=== PATIENT | male | born 1930 | race Caucasian/White ===

== ENCOUNTER 2017-02-06 10:39 | Inpatient (IN) | payer MEDICARE, BC ==
--- NOTE | ~2017-02-06 | HP ---
Unit #: [id number] #: [id number] Patient: KRISTIN GARG [id number] [address] [address] [id number] I MR#: [id number] NAME: KRISTIN GARG ROOM: 323 Age: 86 Sex: M Admission Date: 02/06/2017 : 1930 Attending Physician: Charles Amaral M.D. Primary Care Physician: Edvin Hadley M.D. HISTORY AND PHYSICAL CHIEF COMPLAINT The patient presented to the office complaining of weakness with severe anemia. HISTORY OF PRESENT ILLNESS Mr. Kristin Garg is 83 years old with a history of small lymphocytic lymphoma, which is currently being observed. He came to the office today as a routine followup and on questioning admitted that he is feeling weak for the past week or so with some sense of imbalance. On questioning he had diarrhea with three loose stools last week, but did not report them to be of any different color. CBC done in the office showed a hemoglobin of 7.4, which was unexpectedly low and was recommended admission for evaluation of autoimmune hemolytic anemia or possibly GI bleeding. Following admission hemoglobin was 6.4 and he is scheduled to be transfused 2 units of packed cells. PAST MEDICAL HISTORY 1. Hyperlipidemia. 2. Degenerative arthritis. 3. Small lymphocytic lymphoma. 4. Prior history of pneumonia. PAST SURGICAL HISTORY 1. Appendectomy. 2. Cholecystectomy. SOCIAL HISTORY Never smoker. Does not drink any alcohol. He is single and lives by himself, but he has multiple daughters who assist in his care. FAMILY HISTORY Negative for blood disorders. REVIEW OF SYSTEMS Fourteen point review was taken. CONSTITUTIONAL: Fatigue, sense of imbalance, but no change in appetite and weight. EYES: Negative. EARS, NOSE, MOUTH AND THROAT: Negative. CARDIOVASCULAR: Negative. RESPIRATORY: Some shortness of breathing. Cough without expectoration. No hemoptysis. GASTROINTESTINAL: As discussed. GENITOURINARY: Negative. Unit #: [id number] #: [id number] Patient: KRISTIN GARG NEUROLOGIC: Negative. ALLERGIC: Negative. LYMPHATIC: Negative. SKIN: Negative. PSYCHIATRIC: Negative. ENDOCRINE: Negative. PHYSICAL EXAMINATION GENERAL: The patient is a pleasant, elderly man, awake, alert and oriented times three. VITALS: On admission, temperature 98.4, pulse rate 75, respiratory rate 18, blood pressure 120/54, weight 75.4 kg, BMI 24. HEENT: Awake, alert and oriented times three. On admission he is pale, but not icteric. Mucous membranes are moist. NECK: Without adenopathy, jugular venous distension or thyromegaly. CARDIOVASCULAR: First and second heart sounds are heard and regular. No gallops or rubs. LUNGS: Chest expansion is symmetric. Bilateral and equal air entry with normal breath sounds. ABDOMEN: Soft and nontender. Bowel sounds are active. No organomegaly. EXTREMITIES: 1-2+ pulses. No cyanosis or clubbing. NEUROLOGIC: He is awake, alert, and oriented times three without any focal findings. SKIN: Negative. LYMPHATIC: Negative. PSYCHIATRIC: Normal affect. DIAGNOSTIC STUDIES LABORATORY: CBC shows a white blood cell count of 12.8, hemoglobin 6.4, platelet count 132, MCV 105.3. ASSESSMENT/PLAN Mr. Kristin Garg is 86 years old with a history of degenerative arthritis, who is on baby aspirin 81 mg and a history of small lymphocytic lymphoma which is not being treated to this point. Severe normocytic and macrocytic anemia, possibility of (1) . Etiology of anemia is to be determined, with the differential including autoimmune hemolysis related to his (2) small lymphocytic lymphoma versus GI bleeding. Plans will be to admit him, get a direct zora, LDH, haptoglobin, chemistry, type and cross and transfuse him two units of packed cells. Based upon the workup, will plan to start him on IV steroids or consult GI for endoscopy and further evaluation. Plans were discussed in detail with Mr. Garg and his daughter in the office. Dictated by Nikko Villafana TD: 02/06/2017 15:44 JOB #: [id number] Unit #: [id number] #: [id number] Patient: KRISTIN GARG HISTORY AND PHYSICAL Page 1 of 1 X Charles Amaral MD X HISTORY AND PHYSICAL
--- NOTE | ~2017-02-06 | DS ---
Unit #: [id number] #: [id number] Patient: KRISTIN GARG [id number] [address] [place], [place] [address] [id number] I MR#: [id number] NAME: KRISTIN GARG ROOM: 323 Age: 86 Sex: M Admission Date: 02/07/2017 : 1930 Discharge Date: 02/08/2017 Attending Physician: Charles Amaral M.D. Primary Care Physician: Edvin Hadley M.D. DISCHARGE SUMMARY PRINCIPAL DIAGNOSES 1. Severe symptomatic anemia. 2. Possible gastrointestinal bleed. 3. Small lymphocytic lymphoma. 4. Gout. 5. Colon polyps. 6. Gastroduodenitis. DISCHARGE MEDICATIONS Mr. Kristin Garg will resume his home medications with the exception of aspirin 81 mg. He will watch his stools carefully for evidence of blood. He will follow up in the office weekly on for four weeks. HOSPITAL COURSE/COMPLICATIONS Please see admission history and physical for details of admission. In brief, Mr. Garg was seen in the office with a hemoglobin of 7.4. He was symptomatic with dizziness and weakness. Recheck of CBC done in the hospital was 6.4. Hemolysis workup given is untreated CLL, small lymphocytic lymphoma was done. Normal haptoglobin, normal direct Bonnie test and normal LDH. A GI bleed was suspected. He was transfused two units of packed cells and underwent evaluation by (1) of [facility] as well as Dr. Gerson Gonzales of GI. Upper endoscopy revealed gastroduodenitis but no clear evidence of source of blood loss. He, thereafter, underwent colonoscopy on 01/31/17 with the finding of a colonic polyp which was snared and, again, apart from diverticula and a few tics, no clear source of blood loss. Hemoglobin post transfusion of two units of packed cells was 9.7, stable. He was feeling better. He will be discharged home to follow up as an outpatient. Dictated by... Nikko Villafana/pastor TD: 02/09/2017 10:45 JOB #: [id number] Unit #: [id number] #: [id number] Patient: DAREK GARGYONJustice DISCHARGE SUMMARY Page 1 of 1 X Charles Amaral MD X DISCHARGE SUMMARY
--- NOTE | ~2017-02-06 | CO ---
Unit #: [id number] #: [id number] Patient: KRISTIN PARNELL [id number] [address] [address] [id number] I MR#: [id number] NAME: KRISTIN PARNELL ROOM: 323 Age: 86 Sex: M Admission Date: 02/06/2017 : 1930 Attending Physician: Charles Amaral M.D. Primary Care Physician: Mason Hadley Consultation Date: 02/06/2017 CONSULTATION REPORT REASON FOR CONSULTATION Medical management. HISTORY OF PRESENT ILLNESS The patient is an 86-year-old male with past medical history of CLL, BPH, hyperlipidemia, gout, who was admitted by Dr. Amaral for symptomatic anemia. The patient states that he has had a four- to five-day history of increasing generalized weakness. He states that he has felt somewhat lightheaded and like he might pass out. He denies any chest pain. No difficulty breathing. He denies any abdominal pain. No diarrhea or constipation. No blood in the stool or black tarry stool. The patient states that he was seeing Dr. Amaral for routine checkup. He sees him about every three months regarding CLL. He was noted to have a hemoglobin of 6.4. He was sent to [facility] for admission. PAST MEDICAL HISTORY 1. Admission to [facility] 05/04 through 05/08/2014 for pneumonia. 2. BPH. 3. Gout. 4. CLL followed by Dr. Amaral. PAST SURGICAL HISTORY 1. Appendectomy. 2. Cholecystectomy. ALLERGIES Sulfa. HOME MEDICATIONS 1. Aspirin 81 mg daily. 2. Allopurinol 100 mg daily. 3. Lovastatin 20 mg daily. 4. Alfuzosin 10 mg daily. SOCIAL HISTORY The patient lives with his . There is no tobacco or alcohol use. He walks without assistance. FAMILY HISTORY Unit #: [id number] #: [id number] Patient: KRISTIN PARNELL Notable for both parents being healthy. There is no malignancy in the family as far as he knows. REVIEW OF SYSTEMS A complete review of systems is negative except as indicated in the HPI. PHYSICAL EXAMINATION VITAL SIGNS: Temperature 98.4, pulse 75, respirations 18, blood pressure 122/54. GENERAL: The patient is a very pleasant male who is awake and alert in no acute distress. HEENT: Head is atraumatic. Mucous membranes are moist. NECK: Supple. Trachea is midline. LUNGS: Clear to auscultation bilaterally with no increased work of breathing. HEART: Regular rate and rhythm. ABDOMEN: Soft, nontender. Bowel sounds present in all four quadrants. EXTREMITIES: Nontender with no pedal edema. NEUROLOGIC: Patient is awake and alert. He follows commands. PSYCHIATRIC: Mood and affect are normal. Patient is cooperative. SKIN OF EXAMINED AREAS: Warm and dry. DIAGNOSTIC STUDIES LABORATORY: Complete blood count notable for a white blood cell count of 12.8, hemoglobin 6.4, hematocrit 19.6, platelets 132. INR is 1. Comprehensive metabolic panel notable for BUN 21, creatinine 1.6. LDH is 193. Total protein 5.7. ASSESSMENT The patient is an 86-year-old male with: 1. Symptomatic anemia. The patient's hemoglobin was 14 on 09/02/2016, it is 6.[address] Amaral has ordered 2 units of packed red blood cells to be transfused. He has also ordered 40 mg of Protonix and consulted Dr. Gonzales. There is concern for possible autoimmune hemolytic anemia as well. 2. History of CLL. 3. Acute kidney injury although this looks like it may be chronic kidney disease. The patient's creatinine appears to be near baseline at 1.6. It has been as high as 2.2 on 09/02/2016. 4. Hyperlipidemia. 5. History of gout. PLAN 1. Regarding symptomatic anemia, Dr. Amaral has already ordered 2 units of packed red blood cells and consulted Dr. Gonzales. 2. Regarding presyncope, this is likely related to anemia. I have ordered EKG and cardiac enzymes as well as 2D echo and orthostatics. 3. Regarding BPH, his home medications have been restarted. I have ordered strict I's and O's. Thank you very much for the consultation, will follow the patient along closely with you. Unit #: [id number] #: [id number] Patient: PARNELLDAREKYONS Dictated by... Jill Conn M.D. CRYSTAL/alana TD: 02/06/2017 16:14 JOB #: [id number] CONSULTATION REPORT Page 1 of 1 X Jill Conn MD X CONSULTATION REPORT
--- NOTE | ~2017-02-06 | EKG ---
PATIENT: KRISTIN PARNELL UNIT #: [id number] Ventricular Rate: 70 BPM Atrial Rate: 70 BPM P-R Interval: 146 ms QRS Duration: 96 ms Q-T Interval: 398 ms QTC Calculation(Bezet): 429 ms P [place]: 2 degrees Calculated R [place]: -36 degrees Calculated T [place]: 18 degrees Diagnosis Line: Normal sinus rhythm Diagnosis Line: Left axis deviation Diagnosis Line: Abnormal ECG Diagnosis Line: When compared with ECG of 04-MAY-2015 12:56, Diagnosis Line: No significant change was found Diagnosis Line: Confirmed by AARON DUPONT MD ([id number]) on Diagnosis Line: 02/07/2017 11:02:10 AM INTERPRETING MD: SADIQ
--- NOTE | ~2017-02-06 | CO ---
Unit #: [id number] #: [id number] Patient: KRISTIN PARNELL [id number] [address] [place], [place] [address] [id number] I MR#: [id number] NAME: KRISTIN PARNELL ROOM: 323 Age: 86 Sex: M Admission Date: 02/06/2017 : 1930 Attending Physician: Charles Amaral M.D. Primary Care Physician: Mason Hadley Consultation Date: 02/06/2017 CONSULTATION REPORT DICTATED FOR Gerson Gonzales M.D. PRIMARY CARE PHYSICIAN Dr. Edvin Hadley. REASON FOR CONSULT Anemia. HISTORY OF PRESENT ILLNESS The patient is a very pleasant, 86-year-old, male, with a history of small lymphocytic leukemia, hypertension, and hyperlipidemia. The patient presented to Dr. Amaral's office for followup and was noted to have decreased hemoglobin and therefore admitted for further evaluation. Upon admission, his hemoglobin was noted to be 6.4. The patient reports 4 to 5 days of having intermittent dizziness and increasing weakness. He also mentions occasional "upset stomach" and some diarrhea several days ago. Otherwise no GI symptoms. No history of overt gastrointestinal blood loss in the form of hematemesis, melena, or hematochezia. PAST MEDICAL HISTORY Hyperlipidemia, BPH, gout, small lymphocytic lymphoma, degenerative arthritis. PAST SURGICAL HISTORY Appendectomy and cholecystectomy. SOCIAL HISTORY The patient is . He lives at home with his . Denies alcohol, tobacco or illicit drug use. FAMILY HISTORY None for colon, pancreatic cancer or liver disease. REVIEW OF SYSTEMS 12-point review of organ systems was done, only pertinent positive findings as noted in HPI. The rest of the review of system is negative. PHYSICAL EXAMINATION GENERAL: The patient is awake, alert, and oriented. No acute distress. VITAL SIGNS: Stable with temperature 98.4, blood pressure 122/54, heart rate 75, respirations 18. HEENT: He does have mild pallor. No scleral icterus. No Unit #: [id number] #: [id number] Patient: KRISTIN PARNELL lymphadenopathy. No peripheral edema. CARDIOVASCULAR: Regular rate and rhythm. LUNGS: Clear to auscultation bilaterally. ABDOMEN: Soft, nontender. Liver and spleen not palpable. Bowel sounds normal. DIAGNOSTIC STUDIES LABORATORY RESULTS: Complete metabolic panel notable for BUN 21, creatinine 1.6, INR 1.0. CBC notable for WBC of 12.8, hemoglobin 6.4, MCV 105, platelet 132. ASSESSMENT AND PLAN The patient with symptomatic anemia with background history of small lymphocytic lymphoma. Anemia may be secondary to small lymphocytic lymphoma as well as chronic renal insufficiency. Chronic GI blood loss is also a possibility and upper GI endoscopy is recommended to rule out potential source of chronic upper GI blood loss. Repeat colonoscopy is not indicated at this time as the patient has had exam done within the past 22 years. The patient is currently receiving packed red blood cells. We will continue to monitor and transfuse as needed. Plan of care discussed in detail with patient and family at the bedside. The patient has been discussed with Dr. Gonzales. Further recommendations to follow. Thank you very much for asking us to see this patient. We appreciate the consult. Dictated by... DORINDA Preciado/bran TD: 02/07/2017 02:28 JOB #: [id number] CC: Nikko Bazan M.D. CONSULTATION REPORT Page 1 of 1 X X CONSULTATION REPORT
--- NOTE | ~2017-02-06 | OR ---
Unit #: [id number] #: [id number] Patient: KRISTIN PARNELL [id number] [id number] [facility]. [place], [place] [address] [id number] I MR#: [id number] NAME: KRISTIN PARNELL ROOM: [facility] Date of Procedure: 02/07/2017 Admission Date: 02/06/2017 Surgeon: Gerson Gonzales M.D. : 1930 Attending Physician: Charles Amaral M.D. Primary Care Physician: Edvin Hadley M.D. OPERATIVE REPORT ADDITIONAL ATTENDING PHYSICIAN Jill Conn M.D. PRIMARY CARE PHYSICIAN Edvin Hadley M.D. PREOPERATIVE DIAGNOSES The patient has presented with severe normochromic normocytic anemia. It is not clear whether he has any overt gastrointestinal bleed as he says he does not pay any attention to the stool coloration. His hemoglobin on admission was 6.4 and posttransfusion hemoglobin is 8.6. Baseline hemoglobin in the past has been between 13 to 14. PROCEDURES PERFORMED Upper gastrointestinal endoscopy and biopsy. POSTOPERATIVE DIAGNOSES 1. The patient had distal esophageal Schatzki ring. The latter was felt to be wide open and coincidental. 2. Small hiatus hernia. 3. Mild antral gastritis. This was primarily in the form of scant erosions. 4. Mild focal patchy erosive duodenitis. Otherwise, examination was normal up to third part of duodenum. There was no potential source of blood loss in the entire upper gastrointestinal tract. RECOMMENDATIONS Considerable and detailed discussion held with the patient, his daughter, and son-in-law regarding the fact that we do not have any ready explanation for a significant drop in his hemoglobin. Also, I do not see any clearcut evidence of hemolysis on his labs. He also tells me that a colonoscopy about 5 or 6 years ago at [facility]. Under the circumstances, it will be reasonable to repeat the colonoscopy and this will be done tomorrow with low intensity prep using MiraLAX and Gatorade. SEDATION USED MAC. DESCRIPTION OF PROCEDURE Following detailed explanation of potential risks and complications of an upper endoscopy, namely perforation, bleeding, and complications related to sedation, the patient was brought to GI lab and laid in the left Unit #: [id number] #: [id number] Patient: PARNELL,EXODUS lateral decubitus position. Lubricated tip of the Olympus video upper endoscope was passed through the bite block into the proximal esophagus under direct vision. The entire esophageal mucosa was examined. The patient was noted to have distal esophageal mucosal or Schatzki ring, which was felt to be wide open and coincidental. In addition, a small hiatus hernia was noted. The scope was then advanced into the gastric cavity and the latter was insufflated. Mucosa of the fundus, body, and antrum examined and mild prepyloric antral erythema erosions noted indicating antral gastritis. Pylorus was intubated with visualization of the duodenal bulb. The latter was noted to have mild focal patchy erosive duodenitis. Second and third part of the duodenum normal. Upon withdrawal and retroflexion, incisura, cardia, and greater curve examined and biopsy obtained from the antrum for CLOtest. The scope was withdrawn in the distal esophagus. The entire esophageal mucosa was examined all the way up to pharynx. No additional findings noted. The patient tolerated the procedure without any postprocedure complications. Dictated by... Nikko Hatch/bran TD: 02/07/2017 19:46 JOB #: [id number] CC: Jill Conn M.D. OPERATIVE REPORT Page 1 of 1 X Gerson Gonzales MD X PROCEDURE OPERATIVE NOTE
--- NOTE | ~2017-02-06 | OR ---
Unit #: [id number] #: [id number] Patient: KRISTIN PARNELL [id number] [address] [place], [place] [address] [id number] I MR#: [id number] NAME: KRISTIN PARNELL ROOM: [facility] Date of Procedure: 02/08/2017 Admission Date: 02/07/2017 Surgeon: Gerson Gonzales M.D. : 1930 Attending Physician: Charles Amaral M.D. Primary Care Physician: Edvin Hadley M.D. OPERATIVE REPORT PRIMARY CARE PHYSICIAN Edvin Hadley M.D. PREOPERATIVE DIAGNOSES Anemia. The patient does not have any overt gastrointestinal bleed in terms of history. His hemoglobin on admission was 6.7 with a baseline hemoglobin around 12. He does have a background history of chronic lymphocytic leukemia. PROCEDURES PERFORMED 1. Colonoscopy and polypectomy. 2. Colonoscopy and submucosal injection. POSTOPERATIVE DIAGNOSIS 1. The patient had a sessile polyp about a centimeter in size in the sigmoid colon. This was a true sessile flat adenoma and was removed after submucosal saline injection, polyp bed elevation, and snare polypectomy. 2. A smaller diminutive polyp in the proximal ascending colon also removed using snare polypectomy. 3. Sigmoid and descending colon localized mild diverticulosis. 4. Small internal hemorrhoids. 5. Rest of the examination up to cecum and terminal ileum was normal. The quality of the prep was excellent. RECOMMENDATIONS The patient does not have any potential source of blood loss in the above examination, therefore, symptomatic and supportive treatment, and packed cell transfusions as needed. SEDATION USED MAC. DESCRIPTION OF PROCEDURE Following detailed explanation of potential risks and complications of a colonoscopy, namely perforation, bleeding, and complications related to sedation, the patient was brought to GI lab and laid in the left lateral decubitus position. A digital rectal examination was performed, which was normal. Lubricated tip of the Olympus video colonoscope was inserted through the anus and advanced under direct vision. The scope was advanced and passed up to sigmoid into descending colon. Multiple small diverticula were noticed in this area. The scope tip was then navigated all the way up to cecum with visualization of the ileocecal valve and the Unit #: [id number] #: [id number] Patient: PARNELL,EXODUS appendiceal orifice. Preparation was excellent with good visualization and photodocumentation was obtained. Last several inches of the terminal ileum also visualized after intubation of the ileocecal valve and appeared normal. Successive segments of the colonic mucosa were examined upon withdrawal and a single diminutive polyp was noted in the proximal ascending colon. This was removed using snare polypectomy. It was retrieved and sent for histology. A second diminutive polyp was fulgurated using snare cautery tip. The patient was also noted to have third polyp, which was about a centimeter in size. It was true sessile adenoma in the mid sigmoid colon. This was removed after snare cautery polypectomy after raising the polyp bed with saline elevation and submucosal injection. No additional polyps noted. Other than the left-sided diverticula, the patient was also noted to have small internal hemorrhoids seen on retroflexion. No angiodysplasias were noted throughout the colon. The scope was then withdrawn. The patient returned to the recovery area. He tolerated the procedure without any postprocedure complications. Dictated by... Nikko Hatch/bran TD: 02/08/2017 16:05 JOB #: [id number] CC: Nikko Villafana M.D. Angela Wetherton, M.D. OPERATIVE REPORT Page 1 of 1 X Gerson Gonzales MD X PROCEDURE OPERATIVE NOTE
--- NOTE | ~2017-02-06 | CO ---
Unit #: [id number] #: [id number] Patient: KRISTIN GARG [id number] [facility]. [place], [place] [address] [id number] I MR#: [id number] NAME: KRISTIN GARG ROOM: 323 Age: 86 Sex: M Admission Date: 02/07/2017 : 1930 Attending Physician: Charles Amaral M.D. Primary Care Physician: Edvin Hadley M.D. Consultation Date: 02/06/2017 CONSULTATION REPORT ADDENDUM ADDITIONAL ATTENDING PHYSICIAN Jill Conn M.D. PRIMARY CARE PHYSICIAN Edvin Hadley M.D. REASON FOR CONSULTATION Severe anemia. HISTORY OF PRESENT ILLNESS Mr. Garg is a very pleasant 86-year-old white gentleman, who has been feeling extremely fatigued for the past four weeks. He says before that, he was able to walk around. His daughter gave most of the history supplemented by patient's questioning. Apparently, his admission hemoglobin was found to be 6.4. Baseline hemoglobin has been between 12 to 13 in the past. The patient is currently getting packed cell transfusion. He is not aware of any overt GI bleed in the form of hematemesis, melena, or hematochezia, but mentions that he does not normally look at the stool, so he cannot really say for certainty. He is not taking any [id number] NSAIDs. Upon admission, his hemoglobin was 6.4 with an MCV of 105. He does have a background history of chronic lymphocytic leukemia, which has been "stable." MANAGEMENT PLAN We will proceed with an upper GI endoscopy to look for any potential source of blood loss in the upper gastrointestinal tract; although, initially the patient mentioned that a colonoscopy couple of years ago. After further questioning, it seems that this was done at least 5 or 6 years ago at [facility] according to his daughter. If the upper endoscopy is normal, a colonoscopy will be entertained. The patient also had some evaluation to see if there is any evidence of hemolysis as the etiology for his anemia. Dictated by... Nikko Hatch TD: 02/08/2017 18:05 JOB #: [id number] Unit #: [id number] #: [id number] Patient: KRISTIN GARG CONSULTATION REPORT Page 1 of 1 X Gerson Gonzales MD CONSULTATION REPORT
[~2017-02-06 10:39] MED LIST: ALBUTEROL0.83 MG/ML IH; ALFUZOSIN HCL E10 MG PO; ALFUZOSIN PO; ALLOPURINOL PO; ASPIRIN EC81 M1 PO; ASPIRIN81 M2 PO; BACTRIM DS TABL1 TA1 PO; BENTYL10 M1 PO; CIPRO PO; DIFLUCAN100 MG PO; FLOMAX0.4 M1 PO; HYDROXYZINE HCL25 M1 PO; KAOPECTATE262 MG PO; LEVAQUIN750 M1 PO; LOVASTATIN20 M1 PO; MOTRIN400 M1 PO; OSTEO BI FLEX; PERCOCET5/325 PO; PREDNISONE PO; ROBITUSSIN-CF SY1 ML PO; UROXATRAL10 MG PO; ZITHROMAX PO; ZOFRAN ODT4 MG PO; ZYLOPRIM PO; ZYLOPRIM100 MG PO; [UNRECOGNIZED DRUG - REMARK] PO
[2017-02-06 12:53] LABS: HEMATOCRIT 19.6 % (38.0-50.0); MEAN CELL VOLUME 105.3 FL (83-96); MEAN CORPUSCULAR HEMOGLOBIN 34.5 PG (28-34); MEAN CORPUSCULAR HGB CONC 32.8 g/dL (30-36); MEAN PLATELET VOLUME 8.5 FL (6.5-11.5); RED BLOOD COUNT 1.86 X10e (3.90-5.60); RED CELL DISTRIBUTION WIDTH 17.9 % (11.0-15.5); RETICULOCYTE 2.5 % (0.5-2.8); WHITE BLOOD COUNT 12.8 X10e3 (4.0-10.5)
[2017-02-06 12:56] LABS: HEMOGLOBIN 6.4 gm/dL (13.0-16.0); PARTIAL THROMBOPLASTIN TIME 23.6 SECONDS (23.5-31.3); PROTHROMBIN TIME (PATIENT) 10.9 SECONDS (10.0-11.7)
[2017-02-06 13:13] LABS: ALBUMIN SERUM 3.9 g/dL (3.5-5.0); BILIRUBIN,TOTAL 0.5 mg/dL (0.2-2.0); BUN/CREATININE RATIO 13.12; CALCIUM SERUM 8.8 mg/dL (8.4-10.2); CREATININE SERUM 1.6 mg/dL (0.6-1.4); GLOM FILT RATE Estimated 37.9 mL/min (>60); POTASSIUM 4.3 mmol/L (3.5-5.1); PROTEIN TOTAL SERUM 5.7 g/dL (6.0-8.3)
[2017-02-06 19:32] LABS: CK TOTAL 36 IU/L (36-174)
[2017-02-07 00:48] LABS: CK TOTAL 32 IU/L (36-174)
[2017-02-07 02:27] LABS: HEMATOCRIT 25.3 % (38.0-50.0); MEAN CELL VOLUME 96.7 FL (83-96); MEAN CORPUSCULAR HEMOGLOBIN 32.5 PG (28-34); MEAN CORPUSCULAR HGB CONC 33.6 g/dL (30-36); MEAN PLATELET VOLUME 8.1 FL (6.5-11.5); RED BLOOD COUNT 2.62 X10e (3.90-5.60); RED CELL DISTRIBUTION WIDTH 19.9 % (11.0-15.5); WHITE BLOOD COUNT 16.2 X10e3 (4.0-10.5)
[2017-02-07 02:28] LABS: HEMOGLOBIN 8.5 gm/dL (13.0-16.0)
[2017-02-07 02:36] LABS: ALBUMIN SERUM 3.8 g/dL (3.5-5.0); BILIRUBIN,TOTAL 1.1 mg/dL (0.2-2.0); BUN/CREATININE RATIO 17.33; CALCIUM SERUM 8.8 mg/dL (8.4-10.2); CREATININE SERUM 1.5 mg/dL (0.6-1.4); POTASSIUM 4.3 mmol/L (3.5-5.1); PROTEIN TOTAL SERUM 5.7 g/dL (6.0-8.3)
[2017-02-07 06:22] LABS: HEMATOCRIT 25.9 % (38.0-50.0); HEMOGLOBIN 8.6 gm/dL (13.0-16.0); MEAN CELL VOLUME 97.8 FL (83-96); MEAN CORPUSCULAR HEMOGLOBIN 32.5 PG (28-34); MEAN CORPUSCULAR HGB CONC 33.2 g/dL (30-36); MEAN PLATELET VOLUME 8.2 FL (6.5-11.5); RED BLOOD COUNT 2.65 X10e (3.90-5.60); RED CELL DISTRIBUTION WIDTH 19.8 % (11.0-15.5); RETICULOCYTE 1.8 % (0.5-2.8); WHITE BLOOD COUNT 14.4 X10e3 (4.0-10.5)
[2017-02-07 06:46] LABS: CK TOTAL 27 IU/L (36-174)
[2017-02-07 08:39] LABS: BASOPHIL% 0.2 % (0-2.5); EOSINOPHIL# 0.1 X10e3 (0-0.7); EOSINOPHIL% 0.6 % (0.0-7.0); HEMATOCRIT 26.3 % (38.0-50.0); HEMOGLOBIN 8.7 gm/dL (13.0-16.0); LYMPHOCYTE# 11.5 X10e3 (1.0-3.5); LYMPHOCYTE% 85.2 % (17.0-45.0); MEAN CELL VOLUME 97.9 FL (83-96); MEAN CORPUSCULAR HEMOGLOBIN 32.6 PG (28-34); MEAN CORPUSCULAR HGB CONC 33.3 g/dL (30-36); MEAN PLATELET VOLUME 8.3 FL (6.5-11.5); MONOCYTE# 0.3 X10e3 (0-1.0); MONOCYTE% 2.5 % (3.0-12.0); NEUTROPHIL# 1.6 X10e3 (1.5-7.1); NEUTROPHIL% 11.5 % (40-75); PLATELET COUNT 124 X10e3 (140-420); RED BLOOD COUNT 2.68 X10e (3.90-5.60); RED CELL DISTRIBUTION WIDTH 19.4 % (11.0-15.5); WHITE BLOOD COUNT 13.5 X10e3 (4.0-10.5)
[2017-02-07 08:40] LABS: DIFF IND YES
[2017-02-07 09:25] LABS: PLATELET ESTIMATE NORMAL (NORMAL)
[2017-02-07 09:26] LABS: ANISOCYTOSIS MOD
[2017-02-08 05:33] LABS: HEMATOCRIT 29.2 % (38.0-50.0); HEMOGLOBIN 9.7 gm/dL (13.0-16.0); MEAN CELL VOLUME 98.6 FL (83-96); MEAN CORPUSCULAR HEMOGLOBIN 32.7 PG (28-34); MEAN CORPUSCULAR HGB CONC 33.2 g/dL (30-36); MEAN PLATELET VOLUME 8.7 FL (6.5-11.5); RED BLOOD COUNT 2.96 X10e (3.90-5.60); RED CELL DISTRIBUTION WIDTH 19.6 % (11.0-15.5); WHITE BLOOD COUNT 13.9 X10e3 (4.0-10.5)
[2017-02-08 07:05] LABS: IRON SERUM 161 ug/dL (45-182); TOTAL IRON BINDING CAPACITY 339 ug/dL (252-460); TRANSFERRIN 242 mg/dL (180-329); TRANSFERRIN SATURATION 47 % (20-50)
[2017-03-09] MEDS ORDERED: LOVASTATIN20 M1 PO (13:02)
[2017-03-09] MEDS ORDERED: FERROUS SULFATE PO (13:17)
[2017-03-09] MEDS ORDERED: VITAMIN B122500 MC1 PO (13:37)
[2017-03-16] MEDS ORDERED: PREDNISONE10 MG PO (13:31)
[2017-04-24] MEDS ORDERED: ZOVIRAX400 MG PO (12:31)
[2017-04-24] MEDS ORDERED: LOVASTATIN20 MG PO (12:34)
[2017-04-24] MEDS ORDERED: MYRBETRIQ25 MG PO (12:44)
[2017-04-24] MEDS ORDERED: ZYLOPRIM100 MG PO (13:01)
[2017-04-24] MEDS ORDERED: ALFUZOSIN HCL E10 MG PO (13:02)
== END 2017-02-08 15:05 | disposition home or self-care (01) | DRG 812 ==
LOC: C3A PCU 11:26 → UNDOADMOB 11:26 → C3A PCU 02-07 13:15
PROVIDERS: Family Medicine; Internal Medicine Gastroenterology; Internal Medicine Hematology & Oncology
PROC: 0DB68ZX Excision of Stomach, Via Natural or Artificial Opening Endoscopic, Diagnostic (ICD-10-PCS; 2017-02-07)
PROC: 30233N1 Transfusion of Nonautologous Red Blood Cells into Peripheral Vein, Percutaneous Approach (ICD-10-PCS; 2017-02-07)
PROC: B24BYZZ Ultrasonography of Heart with Aorta using Other Contrast (ICD-10-PCS; 2017-02-07)
PROC: 0DBK8ZX Excision of Ascending Colon, Via Natural or Artificial Opening Endoscopic, Diagnostic (ICD-10-PCS; principal; 2017-02-08 08:13)
PROC: 0DBN8ZX Excision of Sigmoid Colon, Via Natural or Artificial Opening Endoscopic, Diagnostic (ICD-10-PCS; 2017-02-08 08:13)
DX: D64.9 Anemia, unspecified (principal); N17.9 Acute kidney failure, unspecified; C85.80 Other specified types of non-Hodgkin lymphoma, unspecified site; K22.2 Esophageal obstruction; K92.2 Gastrointestinal hemorrhage, unspecified; E78.5 Hyperlipidemia, unspecified; M19.90 Unspecified osteoarthritis, unspecified site; Z90.49 Acquired absence of other specified parts of digestive tract; Z79.82 Long term (current) use of aspirin; N18.9 Chronic kidney disease, unspecified; K44.9 Diaphragmatic hernia without obstruction or gangrene; K29.50 Unspecified chronic gastritis without bleeding; K29.80 Duodenitis without bleeding; K63.5 Polyp of colon; E53.8 Deficiency of other specified B group vitamins; M10.9 Gout, unspecified; K57.90 Diverticulosis of intestine, part unspecified, without perforation or abscess without bleeding
CPT/HCPCS: 80053; 82550; 82607; 83010; 83540; 83550; 83615; 84484; 85025; 85027; 85044; 85610; 85730; 86850; 86880; 86900; 86901; 86923; 87077; 88305; 93005; 93306; P9016

== ENCOUNTER → 2017-02-23 | Outpatient (CLI) | payer MEDICARE, BC ==
[~2017-02-23] MED LIST changes: +FERROUS SULFATE PO; +LOVASTATIN20 MG PO; +MYRBETRIQ25 MG PO; +PREDNISONE10 MG PO; +VITAMIN B122500 MC1 PO; +ZOVIRAX400 MG PO
--- NOTE | ~2017-02-23 | NM18 ---
[facility] A Service of [facility] & [facility] RADIOLOGY TEXT RESULTS PATIENT: KRISTIN APRNELL LOCATION: [facility] : [birth year] UNIT #: [id number] AGE: [address]: Charles Amaral MD SEX: M ORDER DR: [id number] [facility] [address] [place], [place] [address] [id number] O MR#: [id number] Acc #: [id number] NAME: KRISTIN PARNELL : 1930 SEX: M STUDY DATE/TIME: 02/23/2017 11:05 UNIT: [facility] ROOM: STUDY DESCRIPTION: NM GI Bleeding Scan Attending Physician: Charles Amaral M.D. Referring Physician: Charles Amaral M.D. Ordering Physician: Charles Amaral M.D. Primary Care Physician: Edvin Hadley M.D. MEDICAL IMAGING REPORT This report is preliminary unless electronic signature is present EXAM Nuclear medicine GI bleeding scan. COMPARISON CT abdomen and pelvis with IV contrast CT of 09/02/2016, MRI of the abdomen and pelvis without IV contrast dated April 10, 2015. INDICATION 86-year-old male with anemia and history of CLL. Recent upper and lower endoscopy of the GI tract was negative for bleeding. FINDINGS Anterior imaging of the abdomen and pelvis was performed after IV injection of 26.8 mCi of technetium 99m labeled red blood cells in the left antecubital fossa. Imaging was performed up to 2 hours. The study shows normal uptake within the spleen and liver and there is also note of foci of intake in the left hepatic lobe consistent with the patient's known hemangioma in this location. There is no evidence of gastrointestinal bleeding. IMPRESSION No evidence of gastrointestinal bleeding. Dictated by... Eric Landis M.D. THIS IS AN ELECTRONICALLY VERIFIED REPORT Eric Landis M.D. at 02/28/2017 12:57 PM Rex TD: 02/23/2017 17:06 JOB #: [id number] [facility] A Service of [facility] & [facility] RADIOLOGY TEXT RESULTS PATIENT: KRISTIN PARNELL LOCATION: [facility] : [birth year] UNIT #: [id number] AGE: [address]: Charles Amaral MD SEX: M ORDER DR: MEDICAL IMAGING REPORT Page 1 of 1 COPY
== END | disposition home or self-care (01) ==
LOC: CNUC 10:30
DX: C83.00 Small cell B-cell lymphoma, unspecified site (principal); K76.9 Liver disease, unspecified; D64.9 Anemia, unspecified; J31.1 Chronic nasopharyngitis
CPT/HCPCS: 78278; A9560

== ENCOUNTER → 2017-02-28 | Outpatient (CLI) | payer MEDICARE, BC | END | disposition home or self-care (01) | LOC: CLAB 09:36 | DX: N18.3 Chronic kidney disease, stage 3 (moderate) (principal); D63.1 Anemia in chronic kidney disease; K62.5 Hemorrhage of anus and rectum | CPT/HCPCS: 36415; 36430; 86850; 86900; 86901; 86923; P9016 ==

== ENCOUNTER → 2017-03-09 | Outpatient (CLI) | payer MEDICARE, BC ==
[~2017-03-09] VITALS: Ht 175.3 cm; Wt 77.7 kg
--- NOTE | ~2017-03-09 | CT134 ---
[facility] A Service of [facility] & [facility] RADIOLOGY TEXT RESULTS PATIENT: KRISTIN PARNELL [facility] [birth year] UNIT #: [id number] AGE: [address]: Charles Amaral MD SEX: M ORDER DR: [id number] [facility] [address] [place], [place] [address] [id number] O MR#: [id number] Acc #: [id number] NAME: KRISTIN PARNELL : 1930 SEX: M STUDY DATE/TIME: 03/09/2017 9:56 UNIT: [facility] ROOM: STUDY DESCRIPTION: CT Guide Attending Physician: Charles Amaral M.D. Referring Physician: Charles Amaral M.D. Ordering Physician: Charles Amaral M.D. Primary Care Physician: Edvin Hadley M.D. MEDICAL IMAGING REPORT This report is preliminary unless electronic signature is present EXAM CT-guided bone marrow biopsy. INDICATION Anemia and B-cell lymphoma. TECHNIQUE This CT exam was performed with one or more of the following radiation dose reduction techniques: automatic exposure control, adjustment of mA and/or kV according to patient size, and iterative reconstruction. PROCEDURE The risks, benefits, and alternatives to the procedure were explained to the patient and signed, informed consent was obtained. He was placed prone on the CT scanner gantry. A preliminary CT scan was performed through the region of interest and an appropriate site overlying the left iliac bone was selected. The overlying skin was marked. The patient was prepped and draped in the usual sterile fashion. Time-out was performed as per protocol. Skin and subcutaneous tissues were anesthetized with buffered lidocaine and a bone marrow biopsy needle was advanced into the left iliac bone. Repeat CT scan confirmed appropriate positioning of the needle which was then advanced into the bone marrow and a bone marrow aspirate was obtained. The needle was then advanced further and then removed which yielded an adequate core sample. Manual pressure was then applied until hemostasis was obtained. Patient did receive moderate sedation consisting of 2 mg of Versed and 75 mcg of fentanyl. I supervised the IVR nurse and monitored the patient's vital signs for a total of 10 minutes of face to face time. IMPRESSION Technically successful CT-guided bone marrow biopsy as noted above. CT was used during the procedure and permanent images were saved. [facility] A Service of [facility] RADIOLOGY TEXT RESULTS PATIENT: KRISTIN PARNELL LOCATION: [facility] : [birth year] UNIT #: [id number] AGE: [address]: Charles Amaral MD SEX: M ORDER DR: Dictated by... Kate May M.D. THIS IS AN ELECTRONICALLY VERIFIED REPORT Kate May M.D. at 03/12/2017 5:06 PM ELIO/sav TD: 03/12/2017 13:50 JOB #: [id number] MEDICAL IMAGING REPORT Page 1 of 1 COPY
--- NOTE | ~2017-03-09 | XA51 ---
[facility] A Service of [facility] & [facility] RADIOLOGY TEXT RESULTS PATIENT: KRISTIN PARNELL [facility] [birth year] UNIT #: [id number] AGE: [address]: Charles Amaral MD SEX: M ORDER DR: [id number] [facility] [address] [place], [place] [address] [id number] O MR#: [id number] Acc #: [id number] NAME: KRISTIN PARNELL : 1930 SEX: M STUDY DATE/TIME: 03/09/2017 9:56 UNIT: [facility] ROOM: STUDY DESCRIPTION: XA BX Bone Marrow Attending Physician: Charles Amaral M.D. Referring Physician: Charles Amaral M.D. Ordering Physician: Charles Amaral M.D. Primary Care Physician: Edvin Hadley M.D. MEDICAL IMAGING REPORT This report is preliminary unless electronic signature is present EXAM Bone marrow biopsy. INDICATION Anemia and B-cell lymphoma. FINDINGS Please see CT guide for result text. Dictated by... Kate May M.D. THIS IS AN ELECTRONICALLY VERIFIED REPORT Kate May M.D. at 03/12/2017 5:06 PM AFF/hugow TD: 03/12/2017 13:51 JOB #: [id number] MEDICAL IMAGING REPORT Page 1 of 1 COPY
[2017-03-09 07:41] LABS: HEMATOCRIT 21.4 % (38.0-50.0); HEMOGLOBIN 7.3 gm/dL (13.0-16.0); MEAN CELL VOLUME 97.1 FL (83-96); MEAN CORPUSCULAR HEMOGLOBIN 33.1 PG (28-34); MEAN CORPUSCULAR HGB CONC 34.1 g/dL (30-36); MEAN PLATELET VOLUME 8.3 FL (6.5-11.5); RED BLOOD COUNT 2.21 X10e (3.90-5.60); RED CELL DISTRIBUTION WIDTH 18.4 % (11.0-15.5); WHITE BLOOD COUNT 14.5 X10e3 (4.0-10.5)
[2017-03-09 07:46] LABS: PARTIAL THROMBOPLASTIN TIME 24.5 SECONDS (23.5-31.3); PROTHROMBIN TIME (PATIENT) 10.8 SECONDS (10.0-11.7)
== END | disposition home or self-care (01) ==
LOC: CCAT 06:57
PROVIDERS: Internal Medicine Hematology & Oncology
DX: C83.00 Small cell B-cell lymphoma, unspecified site (principal); K76.9 Liver disease, unspecified; J31.1 Chronic nasopharyngitis; D64.9 Anemia, unspecified
CPT/HCPCS: 38221; G0364; 36415; 36430; 77012; 85027; 85610; 85730; 86850; 86900; 86901; 86923; 88305; 88311; J2250; J3010; P9016

== ENCOUNTER → 2017-03-12 | Outpatient (CLI) | payer MEDICARE, BC ==
--- NOTE | ~2017-03-12 | US5 ---
[facility] A Service of [facility] & [facility] RADIOLOGY TEXT RESULTS PATIENT: KRISTIN PARNELL LOCATION: [facility] : [birth year] UNIT #: [id number] AGE: [address]: Charles Amaral MD SEX: M ORDER DR: [id number] [facility] [address] [place], [place] [address] [id number] O MR#: [id number] Acc #: [id number] NAME: KRISTIN PARNELL : 1930 SEX: M STUDY DATE/TIME: 03/12/2017 8:47 UNIT: [facility] ROOM: STUDY DESCRIPTION: US Abdominal Complete Attending Physician: Charles Amaral M.D. Referring Physician: Charles Amaral M.D. Ordering Physician: Charles Amaral M.D. Primary Care Physician: Mason Hadley MEDICAL IMAGING REPORT This report is preliminary unless electronic signature is present EXAM Abdominal ultrasound complete 03/12/2017 INDICATIONS Intermittent stomach pain for the past 6 months. Anemia 5 weeks, 3 transfusions in the past 5 weeks. History of cholecystectomy. TECHNIQUE Sonographic imaging of the abdomen was performed. Correlation is made with CT 09/02/2016 FINDINGS Segmentally visualized aorta and IVC are unremarkable. The technologist placed calipers upon an entirely nonspecific solid-appearing nodule in the anterior midline abdomen measuring 3.8 x 1.8 cm. This could represent an enlarged lymph node given the history of lymphoma in this patient. Correlation with recent cross-sectional imaging would be helpful for further characterization and assessment if not recently performed. Visualized pancreas unremarkable. The liver measures 13 cm long axis. In the left hepatic lobe there is a hyperechoic solid mass measuring about 3.4 cm. This corresponds to a previously documented benign hemangioma and the left hepatic lobe has similar measurements on MRI performed 04/10/2015. No additional hepatic lesion. Gallbladder surgically absent. Extrahepatic common bile duct measures 6 mm. The kidneys are nonobstructed. The right measures 10.4 cm long axis and the left 10.6 cm. No shadowing stone on either side. The spleen is enlarged measuring 15.7 cm long axis. No ascites. IMPRESSION 1. The patient has a history of lymphoma and there is a probable enlarged midline lymph node, measuring up to 3.8 x 1.8 cm. Cross sectional imaging if not recently performed would be complimentary [facility] A Service of [facility] & [facility] RADIOLOGY TEXT RESULTS PATIENT: KRISTIN PARNELL LOCATION: [facility] : [birth year] UNIT #: [id number] AGE: [address]: Charles Amaral MD SEX: M ORDER DR: for better characterization and assessment of potential adenopathy in this patient. 2. 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 This has been previously documented on MRI as recently as March 2015. It measures up to about 3.4 cm which is unchanged for technical factors and modality differences. 3. Splenomegaly. 4. Surgical absence of the gallbladder. 5. Not mentioned above, there is a benign cyst in the right kidney measuring up to 4.2 cm. This has also been documented on MRI. Dictated by... Bryan Amos M.D. THIS IS AN ELECTRONICALLY VERIFIED REPORT Bryan Amos M.D. at 03/14/2017 6:14 AM PAUL/stalin TD: 03/12/2017 19:58 JOB #: [id number] MEDICAL IMAGING REPORT Page 1 of 1 COPY
== END | disposition home or self-care (01) ==
LOC: CGUS 06:40
DX: C83.00 Small cell B-cell lymphoma, unspecified site (principal); K76.9 Liver disease, unspecified; J31.1 Chronic nasopharyngitis; D64.9 Anemia, unspecified; D18.03 Hemangioma of intra-abdominal structures; R16.1 Splenomegaly, not elsewhere classified; Z90.49 Acquired absence of other specified parts of digestive tract
CPT/HCPCS: 76700

== ENCOUNTER → 2017-03-16 | Outpatient (CLI) | payer MEDICARE, BC | END | disposition home or self-care (01) | LOC: CSSDAY 11:30 → CLAB 11:54 → CSSDAY 11:54 | DX: N18.3 Chronic kidney disease, stage 3 (moderate) (principal); K62.5 Hemorrhage of anus and rectum; D63.1 Anemia in chronic kidney disease | CPT/HCPCS: 36415; 36430; 86850; 86900; 86901; 86923; P9016 ==

== ENCOUNTER 2017-03-30 09:00 | Observation (INO) | payer MEDICARE, BC ==
--- NOTE | ~2017-03-30 | CO ---
Unit #: [id number] #: [id number] Patient: KRISTIN GARG [id number] [address] [address] [id number] I MR#: [id number] NAME: KRISTIN GARG ROOM: 219 Age: 86 Sex: M Admission Date: 03/30/2017 : 1930 Attending Physician: Charles Amaral M.D. Primary Care Physician: Mason Hadley Consultation Date: 03/30/2017 CONSULTATION REPORT NEPHROLOGY CONSULTATION REASON FOR CONSULTATION Chronic kidney disease. HISTORY OF PRESENT ILLNESS Mr. Garg is an 86-year-old elderly male with a diagnosis of lymphoma, who was recently started on chemotherapy this week by Dr. Amaral. He had been here a few weeks ago for anemia workup and transfusion, that was unrevealing. The patient had developed some abdominal pain and burning with swallowing as well as diarrhea. Dr. Amaral admitted him for IV fluids and monitoring. We were asked to see for chronic kidney disease, which actually looks stable. His kidney function has been abnormal going back several years. He did use an Aleve within the last two or three days, but does not take these regularly. He has no history of kidney stones. He does have some off and on swelling in his legs and ankles at times. He denies any chest discomfort or shortness of breath. He does have a history of BPH, but does feel like he is emptying his bladder completely. PAST MEDICAL HISTORY Significant for chronic kidney disease, stage 3; BPH; history of hyperuricemia; gout; and lymphoma. PAST SURGICAL HISTORY Appendectomy and cholecystectomy. HOME MEDICATIONS 1. Allopurinol 100 mg a day. 2. Lovastatin 20 mg a day. 3. Alfuzosin 10 mg a day. 4. Myrbetriq 25 mg a day. ALLERGIES He has coded allergy to sulfa drugs. FAMILY HISTORY Negative as far as cancer, kidney problems as far as he knows. SOCIAL HISTORY He is . He smoked many years ago. No alcohol or drug abuse. REVIEW OF SYSTEMS A complete 12-point review of systems was completed with the above Unit #: [id number] #: [id number] Patient: KRISTIN GARG findings. In addition, he denies any headaches or dizziness. No fevers or chills. No bleeding. No chest pain or palpitations. No cough, shortness of air, or hemoptysis. No earache. No bright-red blood per rectum or melena. No dysuria or hematuria. No rashes. No itching. No flank pain. He does not feel he has had any significant weight changes. Unless otherwise indicated, the review of systems was negative. PHYSICAL EXAMINATION VITAL SIGNS: The patient is afebrile, pulse 95, respiratory rate 16, and blood pressure 120/80. GENERAL: This is a pleasant 86-year-old male, who is alert and oriented, eating some dinner, in no acute distress. HEENT: Head is atraumatic and normocephalic. Eyes show pale conjunctivae. Nose shows no nasal drainage or nosebleed. Oropharynx is moist. NECK: Shows no JVD or rigidity. HEART: Regular rate and rhythm with no significant murmur or rub appreciated. LUNGS: Clear with no wheezing or rhonchi. Breathing is nonlabored. ABDOMEN: Soft and nontender. There are bowel sounds present. No suprapubic fullness or tenderness. EXTREMITIES: No lower extremity clubbing or cyanosis. He has trace ankle edema bilaterally. SKIN: Dry with no rashes. MUSCULOSKELETAL: No CVA tenderness to palpation. NEUROLOGIC: Cranial nerves are grossly intact with no gross motor deficits. PSYCHIATRIC: Mood and affect appear normal. DIAGNOSTIC STUDIES LABORATORY RESULTS AND IMAGING STUDIES: Chemistry today showed a sodium of 136, potassium of 4.8, chloride of 106, bicarb of 20, glucose of 89, BUN of 43, creatinine of 1.6, uric acid is slightly high at 9.3, albumin 3.7, phosphorus slightly high at 5.3. CBC showed a white count of 20, hemoglobin 8.9 with a platelet count of 140. The patient did have an abdominal ultrasound on 03/12, that showed nonobstructive kidneys that were about 10.5 cm each, also had splenomegaly. There was a benign cyst in the right kidney. Review of old labs shows creatinine of 1.7, going all the way back to 04/2014 and has been as high as 2.2 in August of this year. Review of old urinalysis has shown anywhere between 1 and 2+ protein, going back to 2013 as well. ASSESSMENT AND PLAN 1. Chronic kidney disease, stage 3. This certainly does look chronic and stable as well despite his recent GI upset and chemotherapy. Certainly, agree with fluids. I do not think he is having any tumor lysis syndrome, but would continue his allopurinol. His phosphorus may actually be a little high just due to his chronic kidney disease. We will continue fluids and recheck labs in the morning and send off urine for studies tonight. 2. Benign prostatic hyperplasia. We will continue his home medications. No obstruction on recent abdominal ultrasound. 3. Hyperuricemia. We will continue allopurinol and IV fluids. 4. Proteinuria. This also looks to be long-term in nature. This could be paraneoplastic as it pertains to his lymphoma. As his kidney function is stable, we will not do an aggressive workup at this time. 5. Lymphoma status post chemo, on IV fluids. 6. Diarrhea. I will send off a Clostridium diff toxin. Unit #: [id number] #: [id number] Patient: KRISTIN GARG I would like to thank Dr. Amaral for this consult and the opportunity to participate in evaluation and care of Mr. Garg. Dictated by... Tiago Pinto Jr., M.D. FLAQUITA/bran TD: 04/01/2017 03:46 JOB #: [id number] CONSULTATION REPORT Page 1 of 1 X Tiago Pinto MD X CONSULTATION REPORT
--- NOTE | ~2017-03-30 | HP ---
Unit #: [id number] #: [id number] Patient: KRISTIN GARG [id number] [address] [address] [id number] I MR#: [id number] NAME: KRISTIN GARG ROOM: 219 Age: 86 Sex: M Admission Date: 03/30/2017 : 1930 Attending Physician: Charles Amaral M.D. Primary Care Physician: Mason Hadley HISTORY AND PHYSICAL CHIEF COMPLAINT Admitted from the office complaining of lack of appetite, weakness, nausea and abdominal pain. HISTORY OF PRESENT ILLNESS Mr. Kristin Garg is 86 years old with a history of small lymphocytic lymphoma who started his first cyclic chemotherapy with bendamustine on 03/28/2017. He received a second dose of cycle 1 on 03/29. He presented to the office on 03/30/2017 in the morning complaining of nausea from the morning with decreased appetite and some burning pain in his abdomen, especially in the lower quadrants. He had also had a few loose stools and, overall, is feeling weak. In the office he was found to be clinically dehydrated; however, with a stable hemoglobin, and given his advanced age and recent chemotherapy, it was felt prudent to admit him to the hospital. PAST MEDICAL HISTORY 1. Small lymphocytic lymphoma diagnosed originally in 2014. Was being observed until recent evaluation for anemia revealed significant bone marrow infiltration, following which he has had a rapidly increasing white count. 2. Hyperlipidemia. 3. Degenerative arthritis. 4. Previous history of pneumonia. PAST SURGICAL HISTORY 1. Appendectomy. 2. Cholecystectomy. 3. Bone marrow biopsy. FAMILY HISTORY Negative for blood disorders. SOCIAL HISTORY Never smoker. Does not drink any alcohol. Single. Lives by himself, but he has multiple daughters who assist in his care. REVIEW OF SYSTEMS A 14-point review of systems was taken. CONSTITUTIONAL: As discussed above. EYES: Negative. EARS, NOSE, MOUTH AND THROAT: Negative. CARDIOVASCULAR: Negative. RESPIRATORY: Negative. Unit #: [id number] #: [id number] Patient: KRISTIN GARG GASTROINTESTINAL: As discussed above. GENITOURINARY: Negative. NEUROLOGIC: Negative. ALLERGIC/LYMPHATICS: Negative. SKIN: Negative. PSYCHIATRIC: Negative. ENDOCRINE: Negative. PHYSICAL EXAMINATION GENERAL: He is a pleasant elderly man who looks younger than his stated age, in mild distress. He is awake, alert, oriented x3. ADMISSION VITALS: Admission temperature is 97.6, pulse rate 90, respirations 16, blood pressure 115/75, weight 171 pounds. HEENT: Examination shows pupils are equal and react well to light. Mild pallor. No icterus. Mucous membranes are dry. NECK: Neck is without adenopathy, JVD or thyromegaly. His previously palpable cervical lymph nodes are no longer palpable. CARDIOVASCULAR SYSTEM: First and second heart sounds were heard. Regular. No murmurs, gallops or rubs. LUNGS: Chest expansion is symmetric. Bilateral equal entry. Normal breath sounds. ABDOMEN: Abdomen is nondistended, slightly tender. Bowel sounds are present with no organomegaly. EXTREMITIES: Extremities are warm with good pulses. No edema, cyanosis or clubbing. NEUROLOGIC: He is awake, alert and oriented x3 without any focal findings. SKIN: Negative. LYMPHATICS: Previously noted cervical lymph nodes are resolved. PSYCHIATRIC: Normal affect. DIAGNOSTIC STUDIES LABS: Pending. ASSESSMENT AND PLAN Mr. Kristin Garg is 86 years old with history of small lymphocytic lymphoma, for which he has had his first cyclic chemotherapy with bendamustine on 03/29 and 03/28/2017. He now has mild abdominal pain, nausea, decreased appetite, and the concern would be for (1) , although he has been hydrated and is currently on Allopurinol. Will plan to admit him to the hospital, hydrate him, check his electrolytes, including uric acid and phosphorous. Start Protonix 40 mg IV once daily. Based upon his labs, may consult [facility] to assist in management. I discussed with Mr. Garg, as well as his "" that plan will be for a 23-hour observation, and if he is stable and improved on 03/31/2017, he will be discharged home to follow up as an outpatient. Dictated by Nikko Villafana/nancy TD: 03/31/2017 14:41 JOB #: [id number] Unit #: [id number] #: [id number] Patient: GARG,EXODUS HISTORY AND PHYSICAL Page 1 of 1 X Charles Amaral MD HISTORY AND PHYSICAL
--- NOTE | ~2017-03-30 | MAL ---
[facility] Nutrition Therapy DATE: 03/30/17 Patient: KRISTIN PARNELL Physician: MARIS Address: [address] [place] [address] Room/Bed: [address] [place] [address], Zip: [place] [address] Admit Date: 03/30/17 Date of : [birth year] Height: Weight: 171 77.7 PHYSICAL MALNUTRITION ASSESSMENT Energy Intake, Chronic Illness Severely reduced: </=50% needs for >/=1 month Energy Intake Comment: Prolonged poor oral intake due to decreased appetite, burning sensation in esophagus with PO intake, increased nutrient needs r/t cancer not being met Weight Loss, Chronic Illness Severe: >5% past 1 month Weight Loss, Comment: 8% body weight loss in ~2 months Physical Findings Comment: No physical signs of malnutrition observed, patient appears well-nourished Malnutrition Survey Results: Malnutrition identified Malnutrition Etiology Summary: Chronic illness severe Malnutrition Survey Comment: Please see nutrition assessment for full details and recommendations. Respectfully, Jaquelin Dupree RD, LD Food and Nutritional Services [facility] cc: client file
--- NOTE | ~2017-03-30 | A ---
[facility] Nutrition Therapy DATE: 03/30/17 Patient: KRISTIN PARNELL Physician: MARIS Address: [address] [place] [address] Room/Bed: [address] [place] [address], Zip: [place] [address] Admit Date: 03/30/17 Date of : [birth year] Height: Weight: 171 77.7 NUTRITIONAL ASSESSMENT: REASON: Seen per consult re: recent weight loss + 4 points malnutrition risk score re: 15 lb weight loss and chewing difficulty Admitting dx: 86 y/o male admitted with diarrhea and decreased PO intake, has lymphoma PMH: Info obtained from 02/06/17 H&P: lymphoma, HLD, anemia, PNA, degenerative arthritis, appy, mariella Anthropometrics: Ht: 69", Wt: 171 lbs (pt confirmed), BMI: 25.3 (overweight) Labs: BUN 43, creat 1.6, phos 5.3, GFR 37.9 Meds: No current meds available (patient just recently admitted today) I/O & Bowel function: BM 03/30 (diarrhea) Skin Integrity: punture procedure site low back/L iliac area, no edema Estimated Nutrition Needs: Increased nutrient needs r/t cancer Assessment: Chart reviewed, events noted. See admitting dx and PMH as stated above. Patient recently admitted to [facility] in January of this year due to weakness. Pts cancer doctor routinely admits him to the hospital approx. every 3 months for observation given cancer diagnosis and hx of anemia, weakness and diarrhea. No updated H&P currently available. RD consulted due to recent weight loss. Patient and daughters in room confirm he has lost approx. 15 lbs in the past 2 months (8% loss). Pt just started chemo last week, has been experiencing nausea and a burning sensation down his esophagus with PO intake (solids and liquids), which is likely due to his chemotherapy. Daughters are hopeful Zofran that the nurse is ordering will resolve this. The patient reports no chewing or swallowing difficulties, just the burning sensation. Of note, he is lactose intolerant but states he tolerates some lactose containing items such as yogurt and Ensure. RD discussed various oral supplements with the patient and his family. He does not currently have a diet ordered but is amenable to trying Ensure clear if start on clear liquids, and requested butter pecan Nepro shakes (which he tolerates) if diet is advanced beyond clears. Given the patients reported weight loss and poor oral intake, he qualifies for severe protein calorie malnutrition. No physical signs of malnutrition observed. See recs below, will follow hospital course. Dx: Severe protein calorie malnutrition r/t chronic illness, cancer AEB 8% body weight loss in 2 months, poor oral intake < 75% of energy needs for > 1 month. [facility] Nutrition Therapy DATE: 03/30/17 Patient: KRISTIN PARNELL Physician: MARIS Address: [address] [place] [address] Room/Bed: [address] [place] [address], Zip: [place] [address] Admit Date: 03/30/17 Date of : [birth year] Height: Weight: 171 77.7 Intervention: Oral diet as tolerated, ONS as stated below Monitoring, Evaluation and Goals: 1. Tolerance of oral diet advancement with minimal c/o N/V/D. 2. Once oral diet advances; PO intake > 50% of meals and oral supps. 3. Prevent further unintentional weight loss. 4. Improvement in renal labs (BUN, creat, lytes, GFR). Monitor: per protocol, criteria to determine if above goals met Recommendations: 1. Once medically feasible advance oral diet per MD recommendations. Suggest Regular diet. The patient reports no chewing or swallowing difficulty. 2. If diet is advanced to clear liquids please order mixed lua Ensure clear TID. If diet is advanced beyond clear liquids please order butter pecan Nepro shakes TID. Of note, the patient states he is lactose intolerant but tolerates certain lactose containing products such as yogurt, Ensure and Nepro supplemental shakes. 3. Please evaluate etiology of esophageal burning sensation with liquids/solids. If scheduled Zofran does not resolve this suggest GI consult for further evaluation. 4. Suggest loperamide prn for diarrhea and daily MVI with minerals once able to tolerate PO. 5. Based on the patients weight loss and prolonged poor oral intake as stated above under "assessment," he qualifies for severe protein calorie malnutrition. See physical malnutrition assessment for further details. RD will follow hospital course Moderate nutrition risk Respectfully, Jaquelin Dupree, RYDER, LD [facility] Nutrition Therapy DATE: 03/30/17 Patient: KRISTIN PARNELL Physician: MARIS Address: [address] [place] [address] Room/Bed: [address] [place] [address], Zip: [place] [address] Admit Date: 03/30/17 Date of : [birth year] Height: Weight: 171 77.7 cc: client file
[~2017-03-30 09:00] MED LIST changes: -LOVASTATIN20 MG PO; -MYRBETRIQ25 MG PO; -ZOVIRAX400 MG PO
[2017-03-30 12:17] LABS: HEMATOCRIT 26.5 % (38.0-50.0); HEMOGLOBIN 8.9 gm/dL (13.0-16.0); MEAN CELL VOLUME 97.1 FL (83-96); MEAN CORPUSCULAR HEMOGLOBIN 32.6 PG (28-34); MEAN CORPUSCULAR HGB CONC 33.6 g/dL (30-36); MEAN PLATELET VOLUME 7.2 FL (6.5-11.5); RED BLOOD COUNT 2.73 X10e (3.90-5.60); RED CELL DISTRIBUTION WIDTH 23.7 % (11.0-15.5)
[2017-03-30 12:57] LABS: ALBUMIN SERUM 3.7 g/dL (3.5-5.0); BILIRUBIN,TOTAL 0.6 mg/dL (0.2-2.0); BUN/CREATININE RATIO 26.87; CALCIUM SERUM 9.2 mg/dL (8.4-10.2); CREATININE SERUM 1.6 mg/dL (0.6-1.4); GLOM FILT RATE Estimated 37.9 mL/min (>60); PHOSPHOROUS 5.3 mg/dL (2.5-4.6); POTASSIUM 4.8 mmol/L (3.5-5.1); PROTEIN TOTAL SERUM 5.8 g/dL (6.0-8.3); URIC ACID 9.3 mg/dL (2.6-7.2)
[2017-03-30] MEDS ORDERED: MYRBETRIQ25 MG PO (13:43)
[2017-03-30 21:41] LABS: URINE APPEARANCE CLEAR; URINE BILIRUBIN NEG (NEG); URINE BLOOD NEG (NEG); URINE COLOR YELLOW; URINE GLUCOSE NEG (NEG); URINE KETONE NEG (NEG); URINE LEUKOCYTE ESTERASE NEG (NEG); URINE NITRATE NEG (NEG); URINE PROTEIN NEG (NEG); URINE SPECIFIC GRAVITY 1.008 (1.003-1.035); URINE UROBILINOGEN 0.2 MG/DL (NEG)
[2017-03-30 21:49] LABS: CREATININE,RANDOM URINE 26 mg/dL; TOTAL PROTEIN,RANDOM URINE <10 mg/dl (<10)
[2017-03-30 21:50] LABS: CULTURE INDICATED? NO
[2017-03-31 06:56] LABS: HEMATOCRIT 23.5 % (38.0-50.0); HEMOGLOBIN 7.9 gm/dL (13.0-16.0); MEAN CELL VOLUME 97.6 FL (83-96); MEAN CORPUSCULAR HEMOGLOBIN 32.9 PG (28-34); MEAN CORPUSCULAR HGB CONC 33.7 g/dL (30-36); MEAN PLATELET VOLUME 7.3 FL (6.5-11.5); RED BLOOD COUNT 2.41 X10e (3.90-5.60); RED CELL DISTRIBUTION WIDTH 23.3 % (11.0-15.5); WHITE BLOOD COUNT 11.5 X10e3 (4.0-10.5)
[2017-03-31 07:20] LABS: ALBUMIN SERUM 3.1 g/dL (3.5-5.0); BILIRUBIN,TOTAL 0.6 mg/dL (0.2-2.0); BUN/CREATININE RATIO 24.37; CALCIUM SERUM 8.2 mg/dL (8.4-10.2); CREATININE SERUM 1.6 mg/dL (0.6-1.4); GLOM FILT RATE Estimated 37.9 mL/min (>60); PHOSPHOROUS 4.5 mg/dL (2.5-4.6); POTASSIUM 4.7 mmol/L (3.5-5.1); PROTEIN TOTAL SERUM 4.7 g/dL (6.0-8.3); URIC ACID 10.1 mg/dL (2.6-7.2)
[2017-04-24] MEDS ORDERED: ZOVIRAX400 MG PO (12:31)
[2017-04-24] MEDS ORDERED: LOVASTATIN20 MG PO (12:34)
[2017-04-24] MEDS ORDERED: MYRBETRIQ25 MG PO (12:44)
[2017-04-24] MEDS ORDERED: ZYLOPRIM100 MG PO (13:01)
[2017-04-24] MEDS ORDERED: ALFUZOSIN HCL E10 MG PO (13:02)
== END 2017-03-31 13:21 | disposition home or self-care (01) ==
LOC: C2A 09:00 → UNDOADMOB 09:33 → C2A 03-31 13:21
PROVIDERS: Internal Medicine Hematology & Oncology; Internal Medicine Nephrology
DX: R10.9 Unspecified abdominal pain (principal); R11.0 Nausea; R63.0 Anorexia; E78.5 Hyperlipidemia, unspecified; M19.90 Unspecified osteoarthritis, unspecified site; Z85.72 Personal history of non-Hodgkin lymphomas; Z87.01 Personal history of pneumonia (recurrent); Z90.49 Acquired absence of other specified parts of digestive tract
CPT/HCPCS: 80053; 81003; 82570; 83615; 83735; 84100; 84156; 84550; 85027; 96372; 96374; 96375; 96376; C9113; G0378; J1650; J2405

== ENCOUNTER 2017-04-03 12:40 | Inpatient (IN) | payer MEDICARE, BC ==
[~2017-04-03] VITALS: Ht 175.3 cm; Wt 72.0 kg
--- NOTE | ~2017-04-03 | EKG ---
PATIENT: KRISTIN PARNELL UNIT #: [id number] Ventricular Rate: 90 BPM Atrial Rate: 90 BPM P-R Interval: 136 ms QRS Duration: 92 ms Q-T Interval: 360 ms QTC Calculation(Bezet): 440 ms P Montgomery: 27 degrees Calculated R Montgomery: -35 degrees Calculated T Montgomery: 24 degrees Diagnosis Line: Sinus rhythm with Premature atrial complexes Diagnosis Line: Left axis deviation Diagnosis Line: Abnormal ECG Diagnosis Line: When compared with ECG of 06-FEB-2017 17:55, Diagnosis Line: Premature atrial complexes are now Present Diagnosis Line: Confirmed by AARON DUPONT MD ([id number]) on Diagnosis Line: 04/09/2017 4:53:55 PM INTERPRETING MD: SADIQ
--- NOTE | ~2017-04-03 | DS ---
Unit #: [id number] #: [id number] Patient: KRISTIN GARG [id number] [address] [address] [id number] I MR#: [id number] NAME: KRISTIN GARG ROOM: 56 Age: 86 Sex: M Admission Date: 04/03/2017 : 1930 Discharge Date: 04/14/2017 Attending Physician: Charles Amaral M.D. Referring Physician: Charles Amaral M.D. Primary Care Physician: Mason Hadley M.D. DISCHARGE SUMMARY PRINCIPAL DIAGNOSIS 1. Pancytopenia secondary to chemotherapy. 2. Neutropenic fever. 3. Small lymphocytic lymphoma. 4. Overactive bladder. 5. Hyperlipidemia. 6. History of gout. 7. Infusion reaction to Rituxan. DISCHARGE MEDICATIONS 1. Lovastatin 20 mg once daily. 2. Alfuzosin ER 10 mg, 1 daily. 3. Allopurinol 100 mg, once daily. 4. Myrbetriq 25 mg p.o. daily. He will follow up in the office on 04/17/2017, for a repeat CBC. HOSPITAL COURSE AND COMPLICATIONS Mr. Kristin Garg was admitted to the hospital on 04/03/2017, after having infusion reaction first starting Rituxan with severe chills. Following admission, he was noted to be neutropenic and spiked a temperature of 103. He was started on broad spectrum antibiotics with Maxipime after obtaining blood, urine cultures and chest x-rays. (1) protamine negative. Neutropenia was treated with subcu followed by IV Granix. His white count is 2300 at time of discharge. He required multiple unit transfusion of packed cells as well as platelets prior to his discharge home. Discharge (2) which was 04/14/2017. Mr. Garg tells me that he has been feeling well with no fevers, chills, shortness of breath, coughing or changes in bowel habits or dysuria or urinary frequency. VITAL SIGNS: Temperature is 97.9. He has been afebrile for the past 72 hours. Pulse is 73, respiratory rate is 18, blood pressure 118/57. Pulse ox is 100% on room air. HEENT: Pupils are equal, reactive well to light. Pallor but no icterus. NECK: JVD or thyromegaly. CARDIOVASCULAR SYSTEM: First and second heart sounds heard. Regular rhythm, no murmurs, gallops, rubs. LUNGS: Chest expansion was symmetric. Bilaterally equal with normal breath sounds. ABDOMEN: Abdomen is soft, nontender. Liver and spleen not palpable. EXTREMITIES: Warm with good pulses. No edema, cyanosis, clubbing. NEURO EXAMINATION: He is awake, alert, oriented x3 with no focal findings. Unit #: [id number] #: [id number] Patient: PARMJIT,EXODUS LYMPHATIC: No palpable lymph nodes. PSYCHIATRIC: Normal affect. SKIN: Negative. DIAGNOSTIC STUDIES LABORATORY: Labs - white count 2300, hemoglobin is 7.6, platelet count is 24,000. Mr. Garg will complete transfusions of 2 units of packed cells and a unit of platelets prior to discharge home. Dictated by... Nikko Villafana/pastor TD: 04/16/2017 17:30 JOB #: [id number] DISCHARGE SUMMARY Page 1 of 1 X Charles Amaral MD X DISCHARGE SUMMARY
--- NOTE | ~2017-04-03 | HP ---
Unit #: [id number] #: [id number] Patient: KRISTIN GARG [id number] [address] [address] [id number] I MR#: [id number] NAME: KRISTIN GARG ROOM: 569 Age: 86 Sex: M Admission Date: 04/03/2017 : 1930 Attending Physician: Charles Amaral M.D. Referring Physician: Charles Amaral M.D. Primary Care Physician: Edvin Hadley M.D. HISTORY AND PHYSICAL CHIEF COMPLAINT Admitted to the office with an infusion reaction to Rituxan. HISTORY OF PRESENT ILLNESS Mr. Kristin Garg is an 86-year-old who was undergoing his first cycle of chemotherapy with bendamustine and Rituxan, receiving Rituxan on 04/03/2017. After the infusion of the first cycle of Rituxan he developed severe chills with some shortness of breathing, without any significant cough or fever. He had profound chills in advanced age. He was transferred by EMS to [facility] emergency room. A vacant bed had been booked in the Intensive Care Unit and he was transferred from the ER to the Intensive Care Unit thereafter. Mr. Garg had been feeling reasonably well after his hospital discharge last week and with the resolution of his abdominal pain, nausea, with a reasonable appetite. No fever or chills prior to that. 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 Other medical problems including hyperlipidemia, degenerative arthritis, and a prior history of pneumonia. PAST SURGICAL HISTORY: Appendectomy, cholecystectomy, bone marrow biopsy. FAMILY HISTORY Negative for blood disorders. SOCIAL HISTORY Negative smoked. Does not drink any alcohol. Single and lives by himself, but has multiple daughters who assist in his care. REVIEW OF SYSTEMS 14 point review of system taken. CONSTITUTIONAL: Chills as discussed. EYES: Negative. EARS, NOSE, MOUTH AND THROAT: Negative. CARDIOVASCULAR: No chest pain or palpitations. RESPIRATORY: Mild shortness of breathing. No wheezing, cough or expectoration. GASTROINTESTINAL: Negative. GENITOURINARY: Negative. NEUROLOGIC: Negative. Unit #: [id number] #: [id number] Patient: KRISTIN GARG ALLERGIC/IMMUNOLOGIC: Infusion reaction to Rituxan. SKIN: Negative. LYMPHATIC: Negative. PHYSICAL EXAMINATION GENERAL: He is an elderly man in obvious distress, secondary to severe chills. Young appearing, looks pale. VITAL SIGNS: Admission temperature 98.8, subsequently had a temperature of 100.1, pulse rate 107, respiratory rate 14, blood pressure 165/100. O2 sat 96%. HEENT: Pupils are equal and react well to light. Mucous membranes are mildly dry. NECK: No lymphadenopathy, JVD, or thyromegaly. CARDIOVASCULAR: First and second heart sounds are heard. Mild tachycardia. LUNGS: Chest expansion was symmetric, but currently with normal breath sounds. No bronchospasm. ABDOMEN: Soft, nontender. Bowel sounds are active. EXTREMITIES: Warm with good pulses. No edema, cyanosis, or clubbing. NEUROLOGIC: He is awake, alert, with no focal findings. PSYCHIATRIC: Negative. SKIN: Negative. LYMPHATIC: Negative. DIAGNOSTIC STUDIES LABORATORY STUDIES: Pending. ASSESSMENT AND PLAN Mr. Kristin Garg is an 86-year-old with a history of small lymphocytic lymphoma, transfusion dependent anemia, admitted with infusion reaction after his first cycle of Rituxan. His hemoglobin in the office was 7.1. He will be observed in the Intensive Care Unit and once his infusion reaction will subside, with promptly transfuse him two units of packed cells with Lasix 20 mg IV between units. In view of his advanced age, he will require close observation for his infusional reaction. Will await results of labs and correct electrolytes as necessary. Dictated by Nikko Villafana/naga TD: 04/04/2017 12:22 JOB #: [id number] Unit #: [id number] #: [id number] Patient: KRISTIN GARG HISTORY AND PHYSICAL Page 1 of 1 X Charles Amaral MD HISTORY AND PHYSICAL
--- NOTE | ~2017-04-03 | XA166 ---
[facility] A Service of [facility] RADIOLOGY TEXT RESULTS PATIENT: KRISTIN PARNELL LOCATION: [facility] 569-01 : [birth year] UNIT #: [id number] AGE: [address]: Charles Amaral MD SEX: M ORDER DR: [id number] [facility] [address] [facility]. [place], [place] [address] [id number] I MR#: [id number] Acc #: [id number] NAME: KRISTIN PARNELL : 1930 SEX: M STUDY DATE/TIME: 04/04/2017 12:28 UNIT: [facility] ROOM: [facility] STUDY DESCRIPTION: XA PICC Line Placement WO Port Attending Physician: Charles Amaral M.D. Referring Physician: Charles Amaral M.D. Ordering Physician: Charles Amaral M.D. Primary Care Physician: Edvin Hadley M.D. 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 Informed consent was obtained, and prior to initiating the procedure a formal timeout procedure was performed. PROCEDURE Using full standard sterile barrier technique, including caps, gowns, gloves, masks, as well as sterile skin preparation and standard sterile draping, the right arm was prepped and draped in the usual fashion, and real-time sterile ultrasound guidance was used to localize a right brachial vein and to confirm vessel patency. A hard copy ultrasound image was recorded. After local anesthesia with 1% Xylocaine, the vein was punctured using real-time sterile ultrasound guidance, and an 0.018 guidewire was advanced into the superior vena cava, using fluoroscopic guidance. A 5 Wallisian double-lumen PICC was then measured to 40 cm and deployed with the tip positioned in the superior vena cava. The position of the line was documented with a radiographic image. The line was secured in place with an adhesive dressing and an antibiotic patch was applied. Total fluoro time was 0.4 minutes. Reference air kerma 2 mGy. One spot fluoroscopic image was taken. IMPRESSION Successful placement of a 5 Wallisian double-lumen PICC via the right arm under ultrasound and fluoroscopic guidance. [facility] A Service of [facility] RADIOLOGY TEXT RESULTS PATIENT: KRISTIN PARNELL LOCATION: [facility] 569-01 : [birth year] UNIT #: [id number] AGE: [address]: Charles Amaral MD SEX: M ORDER DR: Dictated by... Donald Roberson M.D. THIS IS AN ELECTRONICALLY VERIFIED REPORT Donald Roberson M.D. at 04/06/2017 7:59 AM DASH/cris TD: 04/04/2017 22:10 JOB #: [id number] MEDICAL IMAGING REPORT Page 1 of 1 COPY
--- NOTE | ~2017-04-03 | A ---
[facility] Nutrition Therapy DATE: 04/13/17 Patient: KRISTIN PARNELL Physician: MARIS Address: [address] [place] [address] Room/Bed: [address] [place] [address], Zip: [place] [address] Admit Date: 04/03/17 Date of : [birth year] Height: 5 9 Weight: 158 72 NUTRITIONAL ASSESSMENT: REASON: LOS ASSESSMENT PT IS 86 Y.O. MALE ADMITTED FOR ANEMIA PMH: HLD, SMALL LYMPHOCYTIC LYMPHOMA S/P CHEMOTHERAPY, PNA, ANEMIA, APPY, CKD STAGE 3, EDWARD, DEGENERATIVE ARTHRITIS, GOUT Anthropometrics: 5'9", WT: 161# (73 KG), BMI: 23.8 Labs: GLU: 134, BUN: 28, NA+:131, ALB: 3.0 Meds: FOLIC ACID, MIRALAX, PROTONIX, LIPITOR, ZOFRAN, MAG AL I/O & Bowel function: 9390/373 Skin Integrity: PUNCTURE PROCEDURE SITE LOW BACK; (L) ILIAC AREA Estimated Nutrition Needs: INCREASED NEEDS 2' PMH, WEIGHT LOSS NOTED, DECREASED PO INTAKE AND APPETITE Assessment: CHART REVIEWED AND EVENTS NOTED. PT SEEN FOR LENTH OF STAY ASSESSMENT (10 DAYS). OF NOTE, RD ASSESSED PT ON 03/30/17. PT REPORTS DECREASED PO INTAKE 2' DECREASED APPETITE, ADDS HIS APPETITE "GOES UP AND DOWN". PT REPORTS UBW IS ~198# BACK IN [address]. [address] ASSESSMENT ON 03/30, PT LOST ~15# PAST 2 MONTHS (8% WEIGHT LOSS). PT REPORTS JAW PAIN WELL INTERMITTENT ABD PAIN. THIS RD ENCOURAGED ADEQUATE KCAL AND PROTEIN INTAKE, PT AGREED TO DORITA FUNEZ RD TO ORDER. PT REPORTED NO DIET QUESTIONS AT THIS TIME. RD TO FOLLOW. SEE RECOMMENDATIONS BELOW. Dx: INADEQUATE PROTEIN-ENERGY INTAKE R/T PMH, DECREASED APPETITE AEB PT REPORT ABOVE, WEIGHT LOSS NOTED. Intervention: 1. REGULAR DIET 2. NEPRO SHAKES BID Monitoring, Evaluation and Goals: 1. ORAL INTAKE; CONSUME/TOLERATE >50% OF MEALS AND SUPPLEMENTS 2. WEIGHTS; PREVENT FURTHER WEIGHT LOSS 3. LABS; WNL (GLU, BUN, NA+) Recommendations: 1. PLEASE ORDER BUTTER PECAN DORITA SHAKES TID W/MEALS FOR SUPPLEMENTAL NUTRITION [facility] Therapy DATE: 04/13/17 Patient: KRISTIN PARNELL Physician: MARIS Address: [address] [place] [address] Room/Bed: [address] [place] [address], Zip: [place] [address] Admit Date: 04/03/17 Date of : [birth year] Height: 5 9 Weight: 158 72 2. ENCOURAG ADEQUATE KCAL AND PROTEIN INTAKE RD WILL F/U PER PROTOCOL Respectfully, JOSE A MAHONEY MS, RD, LD [facility] cc: client file
[~2017-04-03 12:40] MED LIST changes: +MYRBETRIQ25 MG PO
[2017-04-03 16:30] LABS: BILIRUBIN,TOTAL 0.7 mg/dL (0.2-2.0); CALCIUM SERUM 7.7 mg/dL (8.4-10.2); CREATININE SERUM 1.4 mg/dL (0.6-1.4); GLOM FILT RATE Estimated 44.6 mL/min (>60); POTASSIUM 4.3 mmol/L (3.5-5.1); PROTEIN TOTAL SERUM 5.1 g/dL (6.0-8.3)
[2017-04-03 18:01] LABS: HEMATOCRIT 19.5 % (38.0-50.0); LYMPHOCYTE# 0.2 X10e3 (1.0-3.5); LYMPHOCYTE% 51.8 % (17.0-45.0); MEAN CELL VOLUME 96.5 FL (83-96); MEAN CORPUSCULAR HGB CONC 34.2 g/dL (30-36); MEAN PLATELET VOLUME 7.9 FL (6.5-11.5); MONOCYTE% 1.6 % (3.0-12.0); NEUTROPHIL# 0.1 X10e3 (1.5-7.1); NEUTROPHIL% 46.6 % (40-75); PLATELET COUNT 59 X10e3 (140-420); RED BLOOD COUNT 2.02 X10e (3.90-5.60); RED CELL DISTRIBUTION WIDTH 23.2 % (11.0-15.5); WHITE BLOOD COUNT 0.3 X10e3 (4.0-10.5)
[2017-04-03 18:07] LABS: DIFF IND YES; HEMOGLOBIN 6.7 gm/dL (13.0-16.0)
[2017-04-03 18:29] LABS: PLATELET ESTIMATE DECREASED (NORMAL); POIKILOCYTOSIS MOD
[2017-04-04 10:00] LABS: HEMATOCRIT 26.3 % (38.0-50.0); MEAN CORPUSCULAR HEMOGLOBIN 32.7 PG (28-34); MEAN CORPUSCULAR HGB CONC 35.3 g/dL (30-36); MEAN PLATELET VOLUME 7.3 FL (6.5-11.5); RED BLOOD COUNT 2.84 X10e (3.90-5.60); RED CELL DISTRIBUTION WIDTH 21.2 % (11.0-15.5)
[2017-04-04 10:08] LABS: WHITE BLOOD COUNT 1.3 X10e3 (4.0-10.5)
[2017-04-04 10:09] LABS: HEMOGLOBIN 9.3 gm/dL (13.0-16.0); MEAN CELL VOLUME 92.7 FL (83-96)
[2017-04-05 06:09] LABS: HEMATOCRIT 23.1 % (38.0-50.0); HEMOGLOBIN 8.1 gm/dL (13.0-16.0); MEAN CELL VOLUME 92.9 FL (83-96); MEAN CORPUSCULAR HEMOGLOBIN 32.5 PG (28-34); MEAN CORPUSCULAR HGB CONC 34.9 g/dL (30-36); RED BLOOD COUNT 2.49 X10e (3.90-5.60); RED CELL DISTRIBUTION WIDTH 21.6 % (11.0-15.5); WHITE BLOOD COUNT 0.8 X10e3 (4.0-10.5)
[2017-04-06 06:37] LABS: HEMOGLOBIN 8.7 gm/dL (13.0-16.0); MEAN CELL VOLUME 92.8 FL (83-96); MEAN CORPUSCULAR HEMOGLOBIN 32.4 PG (28-34); MEAN CORPUSCULAR HGB CONC 34.9 g/dL (30-36); RED BLOOD COUNT 2.69 X10e (3.90-5.60); RED CELL DISTRIBUTION WIDTH 21.5 % (11.0-15.5)
[2017-04-07 08:19] LABS: HEMATOCRIT 21.4 % (38.0-50.0); HEMOGLOBIN 7.6 gm/dL (13.0-16.0); MEAN CELL VOLUME 90.9 FL (83-96); MEAN CORPUSCULAR HEMOGLOBIN 32.2 PG (28-34); MEAN CORPUSCULAR HGB CONC 35.4 g/dL (30-36); MEAN PLATELET VOLUME 8.1 FL (6.5-11.5); RED BLOOD COUNT 2.35 X10e (3.90-5.60); RED CELL DISTRIBUTION WIDTH 20.7 % (11.0-15.5); WHITE BLOOD COUNT 0.9 X10e3 (4.0-10.5)
[2017-04-08 07:18] LABS: HEMATOCRIT 20.1 % (38.0-50.0); HEMOGLOBIN 7.1 gm/dL (13.0-16.0); MEAN CELL VOLUME 90.7 FL (83-96); MEAN CORPUSCULAR HEMOGLOBIN 32.1 PG (28-34); MEAN CORPUSCULAR HGB CONC 35.4 g/dL (30-36); MEAN PLATELET VOLUME 8.6 FL (6.5-11.5); RED BLOOD COUNT 2.22 X10e (3.90-5.60); WHITE BLOOD COUNT 0.9 X10e3 (4.0-10.5)
[2017-04-09 07:34] LABS: HEMATOCRIT 23.5 % (38.0-50.0); HEMOGLOBIN 8.3 gm/dL (13.0-16.0); MEAN CELL VOLUME 89.7 FL (83-96); MEAN CORPUSCULAR HEMOGLOBIN 31.6 PG (28-34); MEAN CORPUSCULAR HGB CONC 35.2 g/dL (30-36); MEAN PLATELET VOLUME 7.9 FL (6.5-11.5); RED BLOOD COUNT 2.62 X10e (3.90-5.60); RED CELL DISTRIBUTION WIDTH 18.1 % (11.0-15.5)
[2017-04-09 07:50] LABS: WHITE BLOOD COUNT 1.5 X10e3 (4.0-10.5)
[2017-04-10 09:38] LABS: HEMATOCRIT 24.1 % (38.0-50.0); HEMOGLOBIN 8.5 gm/dL (13.0-16.0); MEAN CELL VOLUME 89.5 FL (83-96); MEAN CORPUSCULAR HEMOGLOBIN 31.5 PG (28-34); MEAN CORPUSCULAR HGB CONC 35.3 g/dL (30-36); MEAN PLATELET VOLUME 8.7 FL (6.5-11.5); RED BLOOD COUNT 2.69 X10e (3.90-5.60); RED CELL DISTRIBUTION WIDTH 18.7 % (11.0-15.5); WHITE BLOOD COUNT 1.5 X10e3 (4.0-10.5)
[2017-04-11 07:21] LABS: HEMATOCRIT 23.8 % (38.0-50.0); HEMOGLOBIN 8.2 gm/dL (13.0-16.0); MEAN CELL VOLUME 89.5 FL (83-96); MEAN CORPUSCULAR HEMOGLOBIN 30.8 PG (28-34); MEAN CORPUSCULAR HGB CONC 34.5 g/dL (30-36); MEAN PLATELET VOLUME 8.7 FL (6.5-11.5); RED BLOOD COUNT 2.66 X10e (3.90-5.60); RED CELL DISTRIBUTION WIDTH 18.9 % (11.0-15.5); WHITE BLOOD COUNT 1.9 X10e3 (4.0-10.5)
[2017-04-11 09:07] LABS: BASOPHIL% 0.1 % (0-2.5); EOSINOPHIL% 0.3 % (0.0-7.0); LYMPHOCYTE# 1.4 X10e3 (1.0-3.5); LYMPHOCYTE% 74.9 % (17.0-45.0); MONOCYTE% 1.1 % (3.0-12.0); NEUTROPHIL# 0.4 X10e3 (1.5-7.1); NEUTROPHIL% 23.6 % (40-75); WHITE BLOOD COUNT 1.9 X10e3 (4.0-10.5)
[2017-04-11 09:25] LABS: HEMATOCRIT 23.8 % (38.0-50.0); HEMOGLOBIN 8.2 gm/dL (13.0-16.0); RED BLOOD COUNT 2.66 X10e (3.90-5.60)
[2017-04-11 09:26] LABS: MEAN CELL VOLUME 89.5 FL (83-96); MEAN CORPUSCULAR HEMOGLOBIN 30.8 PG (28-34); MEAN CORPUSCULAR HGB CONC 34.5 g/dL (30-36)
[2017-04-11 09:27] LABS: PLATELET COUNT 20 X10e3 (140-420); RED CELL DISTRIBUTION WIDTH 18.9 % (11.0-15.5)
[2017-04-11 09:28] LABS: MEAN PLATELET VOLUME 8.7 FL (6.5-11.5)
[2017-04-11 09:29] LABS: DIFF IND YES
[2017-04-11 11:13] LABS: PLATELET ESTIMATE DECREASED (NORMAL)
[2017-04-11 11:14] LABS: ANISOCYTOSIS MOD; POIKILOCYTOSIS MOD
[2017-04-12 06:32] LABS: HEMATOCRIT 20.9 % (38.0-50.0); HEMOGLOBIN 7.4 gm/dL (13.0-16.0); MEAN CELL VOLUME 88.2 FL (83-96); MEAN CORPUSCULAR HEMOGLOBIN 31.3 PG (28-34); MEAN CORPUSCULAR HGB CONC 35.5 g/dL (30-36); MEAN PLATELET VOLUME 8.7 FL (6.5-11.5); RED BLOOD COUNT 2.36 X10e (3.90-5.60); RED CELL DISTRIBUTION WIDTH 18.1 % (11.0-15.5)
[2017-04-13 06:32] LABS: HEMATOCRIT 21.4 % (38.0-50.0); HEMOGLOBIN 7.5 gm/dL (13.0-16.0); MEAN CELL VOLUME 88.1 FL (83-96); MEAN CORPUSCULAR HGB CONC 35.2 g/dL (30-36); MEAN PLATELET VOLUME 8.5 FL (6.5-11.5); RED BLOOD COUNT 2.43 X10e (3.90-5.60); RED CELL DISTRIBUTION WIDTH 17.2 % (11.0-15.5); WHITE BLOOD COUNT 2.1 X10e3 (4.0-10.5)
[2017-04-14 05:32] LABS: HEMATOCRIT 21.7 % (38.0-50.0); HEMOGLOBIN 7.6 gm/dL (13.0-16.0); MEAN CELL VOLUME 88.6 FL (83-96); MEAN CORPUSCULAR HEMOGLOBIN 31.1 PG (28-34); MEAN CORPUSCULAR HGB CONC 35.1 g/dL (30-36); MEAN PLATELET VOLUME 9.2 FL (6.5-11.5); RED BLOOD COUNT 2.45 X10e (3.90-5.60); RED CELL DISTRIBUTION WIDTH 17.8 % (11.0-15.5); WHITE BLOOD COUNT 2.3 X10e3 (4.0-10.5)
[2017-04-24] MEDS ORDERED: ZOVIRAX400 MG PO (12:31)
[2017-04-24] MEDS ORDERED: LOVASTATIN20 MG PO (12:34)
[2017-04-24] MEDS ORDERED: MYRBETRIQ25 MG PO (12:44)
[2017-04-24] MEDS ORDERED: ZYLOPRIM100 MG PO (13:01)
[2017-04-24] MEDS ORDERED: ALFUZOSIN HCL E10 MG PO (13:02)
== END 2017-04-14 16:29 | disposition home or self-care (01) | DRG 809 ==
LOC: C5C 12:40 → CICCU3 12:40 → UNDOADMIN 14:58 → C5C 14:58 → CICCU3 14:58 → C5C 16:42 → CICCU3 16:42 → EDSTATUS 04-04 09:00 → CSSDAY 04-04 09:00 → C5C 04-07 16:41
PROVIDERS: Internal Medicine Hematology & Oncology
PROC: 02HV33Z Insertion of Infusion Device into Superior Vena Cava, Percutaneous Approach (ICD-10-PCS; 2017-04-04)
PROC: B548ZZA Ultrasonography of Superior Vena Cava, Guidance (ICD-10-PCS; 2017-04-04)
PROC: 30243N1 Transfusion of Nonautologous Red Blood Cells into Central Vein, Percutaneous Approach (ICD-10-PCS; 2017-04-08)
PROC: 30243R1 Transfusion of Nonautologous Platelets into Central Vein, Percutaneous Approach (ICD-10-PCS; principal; 2017-04-12)
DX: D61.810 Antineoplastic chemotherapy induced pancytopenia (principal); C85.80 Other specified types of non-Hodgkin lymphoma, unspecified site; R50.81 Fever presenting with conditions classified elsewhere; T45.1X5A Adverse effect of antineoplastic and immunosuppressive drugs, initial encounter; Y92.9 Unspecified place or not applicable; N32.81 Overactive bladder; E78.5 Hyperlipidemia, unspecified; Z90.49 Acquired absence of other specified parts of digestive tract; I10 Essential (primary) hypertension
CPT/HCPCS: 36430; 76937; 77001; 80053; 82947; 85025; 85027; 86850; 86900; 86901; 86923; 87040; 87086; 93005; C1751; J0692; J1447; J1650; J1940; J3420; P9016; P9035; P9037

== ENCOUNTER → 2017-04-24 | Outpatient (CLI) | payer MEDICARE, BC ==
[~2017-04-24] MED LIST changes: +LOVASTATIN20 MG PO; +ZOVIRAX400 MG PO
== END | disposition home or self-care (01) ==
LOC: CSSDAY 09:30
DX: C83.00 Small cell B-cell lymphoma, unspecified site (principal)
CPT/HCPCS: 36430; 86850; 86900; 86901; 86923; J1200; J1940; P9016